=== PATIENT | male | born 1985 | race Caucasian/White ===

== ENCOUNTER 2023-11-29 13:16 | Outpatient (CLI) | payer OTHER | END 2023-11-29 23:59 | disposition home or self-care (01) | LOC: MRI 13:16 | PROVIDERS: ATTEND Student in an Organized Health Care Education/Training Program | DX: M50.10 Cervical disc disorder with radiculopathy, unspecified cervical region (principal); M47.22 Other spondylosis with radiculopathy, cervical region; M48.02 Spinal stenosis, cervical region | CPT/HCPCS: 72141 ==